=== PATIENT | male | born 1995 | race African-American/Black ===

== ENCOUNTER 2017-09-21 17:59 | Emergency (ER) | payer OTHER ==
[~2017-09-21] VITALS: Ht 175.3 cm; Wt 72.6 kg
[2017-09-21 18:15] VITALS: BP 126/77
[2017-09-21] MEDS ORDERED: IV NORMAL SALINE 1000ML BAG 1,000 ML IV ONE (18:15)
--- NOTE | 2017-09-21 18:51 | RAD ---
AP chest. HISTORY: Syncope AP view was taken of the chest. Lungs are clear. Heart is normal in size. There is no effusion. IMPRESSION: 1. No acute chest disease. Electronically signed by: Abdi Michelle MD (09/21/2017 6:46 PM) [facility]
[2017-09-21 18:53] LABS: BASO # 0.1 x10^3/uL (0.0-0.2); BASO % 1 % (0-3); EOS % 1 % (0-3); HEMATOCRIT 45.5 % (39.0-53.0); HEMOGLOBIN 15.5 g/dL (13.0-17.5); LYMPH # 1.5 x10^3/uL (1.0-4.8); LYMPH % 29 % (24-48); MEAN CORPUSCULAR HEMOGLOBIN 30 pg (25-35); MEAN CORPUSCULAR HGB CONC 34 g/dL (31-37); MEAN CORPUSCULAR VOLUME 89 fL (79-100); MONO # 0.6 x10^3/uL (0.0-1.1); MONO % 12 % (0-9); NEUT # 2.9 x10^3uL (1.8-7.7); NEUT % 57 % (31-73); PLATELET COUNT 241 x10^3/uL (140-400); RED BLOOD COUNT 5.09 x10^6/uL (4.30-5.70); RED CELL DISTRIBUTION WIDTH 13.7 % (11.5-14.5); WHITE BLOOD COUNT 5.2 x10^3/uL (4.0-11.0)
[2017-09-21 19:09] LABS: CALCIUM 10.1 mg/dL (8.5-10.1); CREATININE 1.5 mg/dL (0.7-1.3); GFR 72.9; POTASSIUM 4.2 mmol/L (3.5-5.1)
--- NOTE | 2017-09-21 19:12 | RAD ---
CT head without contrast: Reason for examination: Syncope. Fell. Back of head injury. No exams for comparison. Axial images were obtained through the brain. No contrast was administered. Exposure: One or more of the following individualized dose reduction techniques were utilized for this examination: 1. Automated exposure control 2. Adjustment of the mA and/or kV according to patient size 3. Use of iterative reconstruction technique. Ventricular systems are symmetric and not dilated. No midline shift is seen. There is no evidence of intracranial hemorrhage, infarct, mass or contusion. No abnormalities are seen at the orbits. The paranasal sinuses and mastoid air cells are clear. The skull shows a lucency in the right frontal bone consistent with a fracture without depression. IMPRESSION: No acute intraparenchymal abnormality evident. Lucency in the right frontal bone consistent with a nondisplaced fracture. Electronically signed by: Rona Corrales MD (09/21/2017 7:08 PM) [facility]
--- NOTE | 2017-09-21 19:13 | PHYS DOC ---
Adult General Chief Complaint Chief Complaint: SYNCOPE HPI HPI She is a 21-year-old male who presents with report of syncope. Patient had been out at the pool today and patient's mother indicates that he had been horsing around little bit but not over exerting himself. She states that patient had complained that he was just not feeling well and then became diaphoretic after which he had fallen backwards and hit his head on the ground. Patient didn't lose consciousness but mother believes that he had lost consciousness before the fall. Patient does complain of a headache at this time and rates that at a 3 or 4 out of 10. He has had no chest pain or shortness of breath. He does admit to feeling a little bit lightheaded still. Patient's mother indicates that they had initially tried to sit him up after the fall but he started to fall back like he was given a pass out again. At that point, EMS was called. Review of Systems Review of Systems Constitutional: Denies fever or chills [] Eyes: Denies change in visual acuity, redness, or eye pain [] HENT: Denies nasal congestion or sore throat [] Respiratory: Denies cough or shortness of breath [] Cardiovascular: No additional information not addressed in HPI [] GI: Denies abdominal pain, nausea, vomiting, bloody stools or diarrhea [] : Denies dysuria or hematuria [] Musculoskeletal: Denies back pain or joint pain [] Integument: Denies rash or skin lesions [] Neurologic: Denies headache, focal weakness or sensory changes [] Endocrine: Denies polyuria or polydipsia [] All other systems were reviewed and found to be within normal limits, except as documented in this note. Current Medications Current Medications Current Medications Medications (Trade) Dose Ordered Sig/Norris Start Time Stop Time Status Last Admin Dose Admin Sodium Chloride 1,000 ml @ 1,000 mls/hr 1X ONCE 09/21/17 18:15 09/21/17 19:14 DC 09/21/17 18:56 1,000 MLS/HR Allergies Allergies Allergies Coded Allergies Type Severity Reaction Last Updated Verified No Known Drug Allergies 09/21/17 No Physical Exam Physical Exam Constitutional: Well developed, well nourished, no acute distress, non-toxic appearance. [] HENT: Normocephalic, atraumatic, bilateral external ears normal, oropharynx moist, no oral exudates, nose normal. [] Eyes: PERRLA, EOMI, conjunctiva normal, no discharge. [] Neck: Normal range of motion, no tenderness, supple, no stridor. [] Cardiovascular:Heart rate regular rhythm, no murmur [] Lungs & Thorax: Bilateral breath sounds clear to auscultation [] Abdomen: Bowel sounds normal, soft, no tenderness, no masses, no pulsatile masses. [] Skin: Warm, dry, no erythema, no rash. [] Back: No tenderness, no CVA tenderness. [] Extremities: No tenderness, no cyanosis, no clubbing, ROM intact, no edema. [] Neurologic: Alert and oriented X 3, normal motor function, normal sensory function, no focal deficits noted. [] Psychologic: Affect normal, judgement normal, mood normal. [] Current Patient Data Vital Signs Vital Signs Date Time Temp Pulse Resp B/P (MAP) Pulse Ox O2 Delivery O2 Flow Rate FiO2 09/21/17 18:15 98.7 61 18 126/77 (93) 100 Room Air 98.7 Lab Values Laboratory Tests Test 09/21/17 18:15 09/21/17 18:30 Glucose (Fingerstick) 124 mg/dL (70-99) H White Blood Count 5.2 x10^3/uL (4.0-11.0) Red Blood Count 5.09 x10^6/uL (4.30-5.70) Hemoglobin 15.5 g/dL (13.0-17.5) Hematocrit 45.5 % (39.0-53.0) Mean Corpuscular Volume 89 fL (79-100) Mean Corpuscular Hemoglobin 30 pg (25-35) Mean Corpuscular Hemoglobin Concent 34 g/dL (31-37) Red Cell Distribution Width 13.7 % (11.5-14.5) Platelet Count 241 x10^3/uL (140-400) Neutrophils (%) (Auto) 57 % (31-73) Lymphocytes (%) (Auto) 29 % (24-48) Monocytes (%) (Auto) 12 % (0-9) H Eosinophils (%) (Auto) 1 % (0-3) Basophils (%) (Auto) 1 % (0-3) Neutrophils # (Auto) 2.9 x10^3uL (1.8-7.7) Lymphocytes # (Auto) 1.5 x10^3/uL (1.0-4.8) Monocytes # (Auto) 0.6 x10^3/uL (0.0-1.1) Eosinophils # (Auto) 0.0 x10^3/uL (0.0-0.7) Basophils # (Auto) 0.1 x10^3/uL (0.0-0.2) Sodium Level 135 mmol/L (136-145) L Potassium Level 4.2 mmol/L (3.5-5.1) Chloride Level 99 mmol/L (98-107) Carbon Dioxide Level 30 mmol/L (21-32) Anion Gap 6 (6-14) Blood Urea Nitrogen 17 mg/dL (8-26) Creatinine 1.5 mg/dL (0.7-1.3) H Estimated GFR (Cockcroft-Gault) 72.9 BUN/Creatinine Ratio 11 (6-20) Glucose Level 136 mg/dL (70-99) H Calcium Level 10.1 mg/dL (8.5-10.1) Magnesium Level 1.8 mg/dL (1.8-2.4) Total Bilirubin 1.1 mg/dL (0.2-1.0) H Aspartate Amino Transferase (AST) 17 U/L (15-37) Alanine Aminotransferase (ALT) 22 U/L (16-63) Alkaline Phosphatase 106 U/L (46-116) Troponin I Quantitative < 0.017 ng/mL (0.000-0.055) Total Protein 8.6 g/dL (6.4-8.2) H Albumin 4.4 g/dL (3.4-5.0) Albumin/Globulin Ratio 1.0 (1.0-1.7) Laboratory Tests 09/21/17 18:30 Laboratory Tests 09/21/17 18:30 EKG EKG [] Interpretation Time: EKG demonstrates sinus bradycardia with a rate of 58. There is repolarization abnormality noted. Radiology/Procedures Radiology/Procedures [] Impressions: CT of the head and portable chest x-ray demonstrates no acute process. Course & Med Decision Making Course & Med Decision Making Pertinent Labs and Imaging studies reviewed. (See chart for details) Workup has been performed and findings reviewed with patient and family. Specifically, I have addressed the patient's creatinine of 1.5. Patient understands the need to follow up with primary care physician for repeat blood work to evaluate kidney function. Patient reports feeling much better after IV fluids. He continues to deny any chest pain or shortness of breath. Dragon Disclaimer Dragon Disclaimer This electronic medical record was generated, in whole or in part, using a voice recognition dictation system. Departure Departure Impression: Primary Impression: Vasovagal syncope Additional Impression: Dehydration Disposition: 01 HOME, SELF-CARE Condition: STABLE Referrals: NO PCP (PCP) Patient Instructions: Dehydration, Adult, Syncope Additional Instructions: Follow-up with primary care physician in the next week to repeat blood work to further evaluate kidney function. Problem Qualifiers CHRISTOPHER DINH Jr. DO Sep 21, 2017 19:13
[2017-09-21 19:14] LABS: ALBUMIN 4.4 g/dL (3.4-5.0); MAGNESIUM 1.8 mg/dL (1.8-2.4); TOTAL BILIRUBIN 1.1 mg/dL (0.2-1.0); TOTAL PROTEIN 8.6 g/dL (6.4-8.2)
--- NOTE | 2017-09-21 19:18 | EKG ---
[facility] [address] [place] [address] Test Date: 2017-09-21 Test Time: 18:00:42 Pat Name: JOVANNI ZAMAN Department: Room: Gender: M Migratory Worker: : 1995 Requested By: CHRISTOPHER DINH Order Number: [id number] Reading MD: Ronaldo Foster MD Measurements Intervals [place] Rate: 58 P: 26 MO: 178 QRS: 67 QRSD: 94 T: 61 QT: 404 QTc: 400 Interpretive Statements SINUS RHYTHM NON-SPECIFIC ST/T CHANGES Electronically Signed On 09-30-2017 11:22:33 CDT by Ronaldo Foster MD
== END 2017-09-21 20:10 | disposition home or self-care (01) ==
LOC: ER 17:59
DX: R55 Syncope and collapse (principal); E86.0 Dehydration
CPT/HCPCS: 36415; 70450; 71045; 80053; 82962; 83735; 84484; 85025; 93005; 96360; 99285; J7030